=== PATIENT | male | born 1950 | race Caucasian/White ===

== ENCOUNTER → 2016-11-05 | Day surgery (SDC) | payer OTHER ==
[2015-09-18 11:16] VITALS: BMI 29.6
--- NOTE | 2016-11-02 11:17 | SC.ANESEVA ---
Anesthesia Eval & Plan ([facility]) - Medications/Allergies Allergies: Allergies No Known Allergies Allergy (Verified 09/22/15 07:05) Current Medication List: Reviewed - Focused Physical Exam NPO since: Since after Midnight Mallampati: Class II Thyromental Distance: Greater than 3 Neck: Limited Range of Motion Dental: Normal - no significant findings Cardiovascular/Chest: Normal (RRR no mumurs or rubs.) Respiratory: Lungs clear. negative: Wheezing Any problems with anesthesia, including nausea and vomiting?: No Any relatives with a history of Malignant Hyperthermia?: No Other: Diagnoses UNIL INGUINAL HERNIA, W/O OBST OR GANGR, NOT SPCF RECUR (11/05/16) LEFT LOWER QUADRANT PAIN (11/05/16) Allergies Allergy/AdvReac Type Severity Reaction Status Date / Time No Known Allergies Allergy Verified 09/22/15 07:05 Home Medications Medication Instructions Recorded Last Taken Type Pantoprazole Sodium [Protonix] 40 mg PO DAILY 04/16/13 09/21/15 08:00 History Ondansetron HCl [Zofran] 4 mg PO Q8H PRN #15 tab 09/18/15 Unknown Rx Oxycodone Immediate Release 5 - 10 mg PO Q6H PRN #30 tab 09/18/15 09/20/15 Rx [Oxycodone Immediate Release (OxyIR)] Tamsulosin HCl [Flomax] 0.4 mg PO QAM #30 cap 09/18/15 09/21/15 16:00 Rx Ascorbate Calcium [Vitamin C] 500 mg PO DAILY 09/22/15 09/21/15 History Levofloxacin [Levaquin] 500 mg PO DAILY 09/22/15 09/22/15 07:30 History Minerals [Super Mineral] 1 each PO DAILY 09/22/15 09/21/15 History Multivitamin [One Daily 1 each PO DAILY 09/22/15 09/21/15 History Multivitamin] Height and Weight Patient's weight 98.883 kg BMI 29.6 - Anesthetic Plan Anesthesia Type: General ASA Class: 3 - Focused Review of Systems Cardiac History: Yes: Hx Cardia Arrhythmia No: Hx Cardiac Disorders HEENT: Yes: Hx Vision Problem (WEARS GLASSES), Other HEENT Problems Respiratory: No: Hx Recent Cold/Flu, Hx Pneumonia Gastrointestinal: Yes: Hx Gastroesophageal Reflux Disease, Hx Gastrointestinal Disorders Genitourinary: Yes: Other Genitourinary (RENAL CALCULI) Neurological/Musculoskeletal: No: Hx Back Pain, Hx Neurological Disorders Blood/Autoimmune: No: Hx Anemia Smoking Status: Former smoker Surgical History: No: Cholecystectomy, Hip, Knee Other Surgical History: 11/05/16 08:05 CYSTO STONE REMOVAL
[~2016-11-05] MED LIST: BUPIVACAINE 0.25% 30 ML VIAL INF ONE; DEXAMETHASONE 4 MG/ML VIAL IV PRN; DEXAMETHASONE 4 MG/ML VIAL ONE; DIAZEPAM 5 MG TAB PO PRN; FENTANYL 100 MCG/2 ML VIAL IV PRN; FENTANYL 100 MCG/2 ML VIAL ONE; HYDROCODONE 5 MG/ACETAMIN 325 MG TAB PO PRN; KETOROLAC TROMETH 30 MG/ML VIAL IV PRN; KETOROLAC TROMETH 30 MG/ML VIAL ONE; LABETALOL 20 MG/4 ML SYRINGE IV PRN; LR 1,000 ML IV ONE; LR 1,000 ML IV SCH; MIDAZOLAM 2 MG/2 ML VIAL ONE; NS 1,000 ML IV SCH; NS 250 ML IV SCH; ONDANSETRON HCL 4 MG/2 ML VIAL IV PRN; ONDANSETRON HCL 4 MG/2 ML VIAL ONE; PROPOFOL 200 MG/20 ML VIAL IV ONE; ROCURONIUM 50 MG/5 ML VIAL IV ONE; SCOPOLAMINE TRANSDERMAL PATCH TOP PRN; hydrALAZINE 20 MG/ML VIAL IV PRN; hydrALAZINE 20 MG/ML VIAL ONE
[2016-11-05 07:55] VITALS: TEMP 98
--- NOTE | 2016-11-05 09:25 | HIMOPRPT ---
PROCEDURE: DATE OF PROCEDURE: 11/05/16 PREOPERATIVE DIAGNOSIS: Left inguinal hernia. POSTOPERATIVE DIAGNOSIS: Left inguinal hernia. PROCEDURE: Laparoscopic repair of left inguinal hernia using Bard 3D mesh and inguinal LN biopsy SURGEON: Jose Luis Carranza MD ANESTHESIA: General. COMPLICATIONS: None. ESTIMATED BLOOD LOSS: < 5cc OPERATIVE NOTE: The patient was placed supine on the operating table. After induction of anesthesia, he was prepped and draped in the usual fashion. A small supraumbilical incision was made and a 5-mm Optiview trocar was placed. With this in place, we insufflated the abdomen with CO2 until a pressure of 15 was achieved. The abdomen was inspected. We then placed a 5-mm port in the left side of the abdomen and an 11-mm port on the right. On inspection of the abdomen a LIH was noted. No hernia present on the right side. We went ahead and opened the peritoneum on the Left side. Once we did this, we were able to bluntly dissect the peritoneum and create a preperitoneal space. The hernia sac was pulled away from the defect and the surrounding cord structures. Once proper amount of space was created, we went ahead and placed a left-sided 3D mesh. We covered the defect and the surrounding tissues. We then used a SecureStrap to secure this to the pubic tubercle, and the abdominal wall muscles. Once this was secured, we went ahead and closed the peritoneum. We noted there were no wrinkles or folds on the mesh and we pulled the peritoneum over the mesh and approximated this to the upper edge of the peritoneum using the SecureStrap Tacker as well. The mesh remained nicely in place. This area was completely hemostatic. We went ahead and used a 0 Vicryl suture and closed the larger port site after we had removed the port. While doing this through the laparoscope, we passed the sutures in a [id number] fashion using a [place] suture passer. We then tied this together and removed the remaining 5 mm port allowing the CO2 to escape. The wounds were irrigated and then infiltrated with 0.25% Marcaine. We went ahead and closed the skin edges using 4-0 Monocryl and Dermabond. Sponge, needle, and instrument counts were correct.
--- NOTE | 2016-11-05 09:26 | PCM.DCS92 ---
Discharge Outpatient Note - Final/Secondary Discharge Diagnosis (1) Left inguinal hernia Resolved K40.90 - UNIL INGUINAL HERNIA, W/O OBST OR GANGR, NOT SPCF RECUR [id number] Additional Instructions: INSTRUCTIONS: 11/05/16 Resume home medications Diet : High Fiber Special: Okay to ambulate Ice pack to groin for 15-20 minutes 4-6 times per day Okay to shower tomorrow No straining No Lifting anything 30lbs or greater No driving x4 days (and only if not taking pain medications) Call office for a follow up appointment [phone]
--- NOTE | 2016-11-05 10:03 | SC.ANESPOS ---
Post-Anesthesia Note LOC: Fully Awake Post-Anesthesia Assessment: Awake, Returned to Baseline, Hemodynamically Stable , Pain Control Adequate Phase I & II Recovery Complete: Yes Apparent Anesthesia Complication: No : N - Vital Signs Blood Pressure: 129/64 Pulse: 77 Resp Rate: 18 O2 Sat: 100 Temp: 98 F
[2016-11-05 10:37] VITALS: BP 114/66; PULSE 80
== END ==
LOC: CPSC 06:54
PROVIDERS: ATTEND Surgery
PROC: 0YU64JZ Supplement Left Inguinal Region with Synthetic Substitute, Percutaneous Endoscopic Approach (ICD-10-PCS; principal; 2016-11-05 08:00)
DX: K40.90 Unilateral inguinal hernia, without obstruction or gangrene, not specified as recurrent (principal); K21.9 Gastro-esophageal reflux disease without esophagitis; M19.90 Unspecified osteoarthritis, unspecified site; Z87.891 Personal history of nicotine dependence; Z79.899 Other long term (current) drug therapy
CPT/HCPCS: 49650; C1781; J0360; J1100; J1885; J2250; J2405; J2704; J3010; J3490